=== PATIENT | female | born 1955 | race Caucasian/White ===

== ENCOUNTER 2021-09-20 11:16 | Emergency (ER) | payer OTHER ==
[2021-09-20 11:46] VITALS: BMI 23.3
[2021-09-20] MEDS ORDERED: BEBTELOVIMAB (EUA) 175 MG/2 ML VIAL IVPUSH ONE (12:14)
[2021-09-20 15:03] VITALS: BP 118/77; PULSE 94; TEMP 99
== END 2021-09-20 15:52 | disposition home or self-care (01) ==
LOC: JER 11:16 → JCOVINFU 11:16
PROC: 3E033GC Introduction of Other Therapeutic Substance into Peripheral Vein, Percutaneous Approach (ICD-10-PCS; principal; 2021-09-20)
DX: U07.1 COVID-19 (principal)
CPT/HCPCS: 99284-25; M0222; Q0222